=== PATIENT | male | born 1945 | race Caucasian/White ===

== ENCOUNTER → 2020-04-19 | Outpatient (CLI) | payer OTHER ==
[~2020-04-19] VITALS: Ht 182.9 cm; Wt 106.6 kg
[~2020-04-19] MED LIST: ASA81BEC PO; CARVEDILOL25 MG PO; SIMVASTATIN40 MG PO
--- NOTE | 2020-04-20 18:06 | PATH ---
[facility] [place] [address] PATHOLOGY RPT PROCEDURE Name: HAMZAH MATIAS Room #: REG [facility] M..#: [id number] Admission: 04/19/20 Date of : 47 Discharge: Report #: [id number] Path Case #: [id number] [facility] Accession Number: [id number] . 01 Material submitted: . PART A: colon - POLYP AT PROXIMAL TRANSVERSE COLON X2. Modifiers: proximal, transverse PART B: cecum - POLYP AT CECUM PART C: colon - POLYP AT 50CM . 01 Clinical history: . HX OF POLYPS, COVID TEST . 02 Diagnosis: A. Polyp x2, at proximal transverse colon, endoscopic biopsy: - Tubular adenoma identified in multiple fragments. - Negative for high grade dysplasia. . B. Polyp, at cecum, endoscopic biopsy: - Tubular adenoma. - Negative for high grade dysplasia. . C. Polyp, at 50 cm, endoscopic biopsy: - Tubular adenoma. - Negative for high grade dysplasia. . (IUV:mml; 04/20/2020) QL 04/20/2020 1235 Local . 02 Electronically signed: . Effie Joseph MD, Pathologist NPI- [id number] . 01 Gross description: . A. Received in formalin labeled "Hamzah Matias, polyp at proximal transverse colon" is a 0.6 x 0.6 x 0.1 cm aggregate of james-brown soft tissue fragments. The specimen is submitted entirely in A1. . B. Received in formalin labeled "Hamzah Matias, polyp at cecum" is a 0.5 x 0.4 x 0.1 cm fragment of james-brown soft tissue. The specimen is submitted entirely in B1. . C. Received in formalin labeled "Hamzah Matias, polyp at 50 cm" is a 0.5 x 0.4 x 0.2 cm fragment of james-brown soft tissue. The specimen is submitted entirely in C1. ([facility]; 04/19/2020) [facility] 04/19/2020 184 Local . 02 [place] [address] PATHOLOGY RPT PROCEDURE Name: HAMZAH MATIAS W Room #: REG HARRIET Aguilar#: [id number] Admission: 04/19/20 Date of : 47 Discharge: Report #: [id number] Path Case #: [id number] Pathologist provided ICD-10: D12.3, D12.0, D12.6 . 02 CPT . 500486, 542534, 451350 Specimen Comment: A courtesy copy of this report has been sent to [phone] Specimen Comment: [phone], Specimen Comment: Report sent to ,DR TY / DR PINEDA Performed at: [address], [place] [id number] MD Pablo Stephen MD Phone: [phone] Performed at: [address] [id number] MD Effie Joseph MD Phone: [phone]
--- NOTE | 2020-04-23 10:53 | P ---
[facility] [place] [place] [address] PROCEDURE REPORT Name: VALDO MATIAS Room #: REG [facility]#: [id number] Admission: 04/19/20 Attend Phys: Elieser Mora MD Discharge: Date of : 47 Report #: [id number] THIS REPORT FOR: cc: Dallas Lock MD, Paul Piezas MD Thesing, John A. MD ~ CC: Elieser Lock MD DATE OF SERVICE: 04/19/2020 PROCEDURE: Colonoscopy. BRIEF HISTORY: The patient is a 74-year-old male with a history of colon polyps. He presents for high risk screening colonoscopy. PREOPERATIVE DIAGNOSIS: High risk screening colonoscopy due to history of colon polyps. POSTOPERATIVE DIAGNOSES: 1. Multiple colon polyps. 2. Moderate sigmoid diverticulosis coli. 3. Internal hemorrhoids. 4. Mild melanosis coli. MEDICATIONS: Deep sedation with propofol per anesthesia. SPECIMENS: 1. Polyps x 2, proximal transverse colon. 2. Cecal polyp. 3. Polyp at 50 cm. ESTIMATED BLOOD LOSS: 3 mL. PROCEDURE: Colonoscopy to cecum and terminal ileum with snare polypectomy and biopsy. FINDINGS: Prior to propofol sedation, procedure of colonoscopy discussed with the patient as well as potential risks and its complications. He indicates he understands and desires to proceed. DESCRIPTION OF PROCEDURE: With the patient in left lateral decubitus position, digital examination was completed which revealed no abnormalities. Subsequently, the Olympus video colonoscope was introduced into the rectum, [facility] [address] [place] [address] PROCEDURE REPORT Name: VALDO MATIAS Room #: REG [facility]RIET Aguilar#: [id number] Admission: 04/19/20 Attend Phys: Elieser Mora MD Discharge: Date of : 47 Report #: [id number] advanced under direct vision to the cecum. This was done with minimal difficulty. The cecum was identified by the ileocecal valve and the appendiceal orifice. I was able to visualize the distal segment of terminal ileum, which was inspected and noted to be unremarkable. At that point, the scope was slowly withdrawn and careful circumferential views obtained including retroflexion of the scope in the ascending colon. Upon slow withdrawal of the scope, the prep was good. The mucosa was within normal limits, normal vascular pattern, normal light reflex. As we withdrew the scope, he was noted to have a pattern of melanosis coli throughout the entire colon, which was mild. In the cecum, a diminutive polyp was seen and removed with biopsy forceps. In the proximal transverse colon, 2 diminutive polyps were seen in close proximity and both removed with biopsy forceps. The scope was further withdrawn and in the left colon, in particular in the distal descending colon and sigmoid colon, he was noted to have moderately severe diverticular disease without endoscopic evidence of diverticulitis. At 50 cm, a 5 mm, mostly flat polyp was seen and removed by cold snare polypectomy and recovered. Scope was further withdrawn, no additional abnormalities were seen. Scope was withdrawn in the rectum. No abnormalities were seen. However, upon retroflexion, small internal hemorrhoids were seen. Scope was withdrawn. The patient tolerated the procedure well. CONDITION OF THE PATIENT UPON DISCHARGE: Following procedure, the patient drowsy, aroused, conversant and will be discharged home when fully ambulatory. INSTRUCTIONS TO THE PATIENT AND FAMILY AT THE TIME OF DISCHARGE: We will follow up on the pathology of the four polyps. If 3 or more adenomas, he is to return in 3 years; if only 1 or 2, 5 years; if none, then 10 years. Withdrawal time from the cecum was 12 minutes 19 seconds. Previous colonoscopy was 5 years ago. Also, since he does have melanosis coli, we will discuss with the patient whether or not he is using stimulatory laxatives. <ELECTRONICALLY SIGNED> By: Elieser Mora MD 04/23/20 1053 1056 1615 Elieser Mora MD /nt
== END | disposition home or self-care (01) ==
LOC: GI 08:27
PROVIDERS: ATTEND Specialist
DX: Z12.11 Encounter for screening for malignant neoplasm of colon (principal); K64.8 Other hemorrhoids; K57.30 Diverticulosis of large intestine without perforation or abscess without bleeding; D12.0 Benign neoplasm of cecum; D12.3 Benign neoplasm of transverse colon; K63.89 Other specified diseases of intestine; E78.00 Pure hypercholesterolemia, unspecified; Z87.891 Personal history of nicotine dependence; Z20.828 Contact with and (suspected) exposure to other viral communicable diseases; Z79.899 Other long term (current) drug therapy; Z98.890 Other specified postprocedural states
CPT/HCPCS: 62110; 62900